=== PATIENT | female | born 1995 | race Two or more races ===

== ENCOUNTER 2018-10-15 11:55 | Emergency (ER) | payer SELFPAY ==
[2018-10-15 12:35] VITALS: BP 128/81; PULSE 71; RESP 18; TEMP 98.6; O2SAT 100
--- NOTE | 2018-10-15 13:37 | ED PDOC ---
HPI: Psych/Substance Abuse Time Seen by Provider: 10/15/18 12:43 Chief Complaint (Nursing): Psychiatric Evaluation Chief Complaint (Provider): Psychiatric Evaluation History Per: Patient History/Exam Limitations: no limitations Additional Complaint(s): Martina Lewis is a 22 year old female with no past medical history, who presents to the emergency room wanting to see a psychiatrist. Patient states she has been feeling suicidal ideation and has been feeling depressed as well. Pt denies current SI. Patient denies taking any medications at home except vitamins PMD: No provider Past Medical History Reviewed: Historical Data, Nursing Documentation, Vital Signs Vital Signs: Last Vital Signs Temp 98.6 F 10/15/18 12:32 Pulse 71 10/15/18 12:32 Resp 18 10/15/18 12:32 BP 128/81 10/15/18 12:32 Pulse Ox 100 10/15/18 12:32 - Medical History PMH: No Chronic Diseases - Surgical History Surgical History: No Surg Hx - Family History Family History: States: Unknown Family Hx - Allergies Allergies/Adverse Reactions: Allergies Allergy/AdvReac Type Severity Reaction Status Date / Time peanut Allergy RASH Verified 10/15/18 12:35 Review of Systems ROS Statement: Except As Marked, All Systems Reviewed And Found Negative Constitutional: Negative for: Fever, Chills Cardiovascular: Negative for: Chest Pain Respiratory: Negative for: Cough Gastrointestinal: Negative for: Nausea, Vomiting, Abdominal Pain Psych: Negative for: Suicidal ideation (None currently ) Physical Exam - Reviewed Nursing Documentation Reviewed: Yes Vital Signs Reviewed: Yes - Physical Exam Appears: Positive for: Non-toxic, No Acute Distress Head Exam: Positive for: ATRAUMATIC, NORMOCEPHALIC Skin: Positive for: Normal Color Eye Exam: Positive for: Normal appearance ENT: Positive for: Normal ENT Inspection Cardiovascular/Chest: Positive for: Regular Rate, Rhythm. Negative for: Murmur, Bradycardia, Tachycardia Respiratory: Positive for: Normal Breath Sounds. Negative for: Accessory Muscle Use, Respiratory Distress Extremity: Positive for: Normal ROM Neurologic/Psych: Positive for: Alert, Oriented, Gait. Negative for: Facial Droop - ECG O2 Sat by Pulse Oximetry: 100 (RA) Pulse Ox Interpretation: Normal Medical Decision Making Medical Decision Making: Time: 12:48 Plan: --Crisis evaluation Pt left room prior to evaluation by blade worker. Went to office 3 times to write patient name on sheet however no one available to open door and no one answering phone. Scribe Attestation: Documented by Hal Jenkins, acting as a scribe for Lala Steen PA-C Provider Scribe Attestation: All medical record entries made by the Scribe were at my direction and personally dictated by me. I have reviewed the chart and agree that the record accurately reflects my personal performance of the history, physical exam, medical decision making, and the department course for this patient. I have also personally directed, reviewed, and agree with the discharge instructions and disposition. Disposition - Clinical Impression Clinical Impression: Encounter for psychiatric assessment - Disposition Disposition Time: 14:03 Condition: STABLE Forms: [employer] ([employer])
== END 2018-10-15 14:00 | disposition left against medical advice (07) ==
LOC: H.ER 11:55
DX: Z04.6 Encounter for general psychiatric examination, requested by authority (principal)